=== PATIENT | male | born 1945 | race Caucasian/White ===

== ENCOUNTER 2016-12-19 21:03 | Inpatient (IN) | payer OTHER ==
[~2016-12-19] VITALS: Ht 177.8 cm; Wt 107.5 kg
[2016-12-19 21:51] LABS: CHLORIDE 108 mEq/L (99-109); INTER. NORMALIZED RATIO 1.2; POTASSIUM 3.9 mEq/L (3.7-5.4); PROTHROMBIN TIME 12.1 (9.2-11.2); PTT 25.7 (25-32); SODIUM 143 mEq/L (136-147)
[2016-12-19 21:52] LABS: GLUCOSE 111 mg/dL (70-99)
[2016-12-19 21:54] LABS: ANION GAP 10 MEQ/L (2-14)
[2016-12-19 21:56] LABS: GFR ESTIMATE (CALCULATED) > 59 mL/min/
[2016-12-19 21:57] LABS: UREA NITROGEN (BUN) 30 mg/dL (9-23)
[2016-12-19 22:02] LABS: HEMATOCRIT 18.7 % (38.0-50.0); MCH 24.6 PG (29.0-34.0); MCHC 29.4 G/DL (30.0-36.0); MCV 83.5 FL (86-99); MEAN PLAT.VOLUME 9.3 uM^3 (9.0-12.4); PLATELET COUNT 209 K/uL (156-360); RBC DIS.WIDTH-CV 16.6 % (11.8-14.6); RBC DIS.WIDTH-SD 50.5 % (39-53); RED BLOOD COUNT 2.24 M/uL (4.00-5.50); WHITE BLOOD COUNT 5.8 K/uL (4.1-10.2)
[2016-12-19 22:43] LABS: TOTAL BILIRUBIN 0.6 mg/dL (0.0-1.0)
[2016-12-19 22:44] LABS: ALKALINE PHOSPHATASE 43 IU/L (3-129)
[2016-12-19 22:47] LABS: DIRECT BILIRUBIN 0.2 mg/dL (0.0-0.3)
[2016-12-19 23:03] LABS: TROP-I INTERPRETATION NEGATIVE; TROPONIN-I < 0.01 ng/mL (0.0-0.30)
[2016-12-19] MEDS ORDERED: XARELTO20 MG PO (23:32)
[2016-12-19] MEDS ORDERED: GABAPENTIN300 MG PO (23:33)
[2016-12-19] MEDS ORDERED: PRAVASTATIN SOD10 MG PO (23:33)
[2016-12-19] MEDS ORDERED: BENAZEPRIL HCL20 MG PO (23:33)
[2016-12-19] MEDS ORDERED: METOPROLOL TART50 MG PO (23:33)
[2016-12-19] MEDS ORDERED: HYDROCHLOROTHIA25 MG PO (23:33)
[2016-12-19] MEDS ORDERED: FUROSEMIDE20 MG PO (23:33)
[2016-12-19] MEDS ORDERED: TAMSULOSIN HCL0.4 MG PO (23:34)
[2016-12-19] MEDS ORDERED: KLOR-CON M2020 MEQ PO (23:34)
[2016-12-19] MEDS ORDERED: FISH OIL 1,0001 EAC7 PO (23:34)
[2016-12-19 23:45] VITALS: BP 107/70
[2016-12-19 23:58] VITALS: BP 97/64
[2016-12-20] VITALS (14 sets, daily range): BP systolic 101–131; BP diastolic 59–87
[2016-12-20 11:23] LABS: POINT-OF-CARE USER ID NUTSLF44
[2016-12-20 11:50] LABS: ANION GAP 9 MEQ/L (2-14); CHLORIDE 107 MEQ/L (99-109); GFR ESTIMATE (CALCULATED) > 59 mL/min/; GLUCOSE 101 mg/dL (70-99); POTASSIUM 3.9 MEQ/L (3.7-5.4); SAMPLE HEMOLYSIS CHECK 0; SAMPLE ICTERIC CHECK 0; SAMPLE LIPEMIA CHECK 0; SODIUM 143 MEQ/L (136-147); UREA NITROGEN (BUN) 27 mg/dL (9-23)
[2016-12-20 12:30] LABS: MCH 26.7 PG (29.0-34.0); MCHC 31.6 G/DL (30.0-36.0); MCV 84.5 FL (86-99); MEAN PLAT.VOLUME 10.3 uM^3 (9.0-12.4); PLATELET COUNT 163 K/uL (156-360); RBC DIS.WIDTH-CV 15.7 % (11.8-14.6); RBC DIS.WIDTH-SD 48.6 % (39-53); RED BLOOD COUNT 2.96 M/uL (4.00-5.50); WHITE BLOOD COUNT 4.5 K/uL (4.1-10.2)
[2016-12-20 16:52] LABS: POINT-OF-CARE USER ID NUTSLF44
[2016-12-20 20:04] LABS: HEMATOCRIT 24.1 % (38.0-50.0); MCV 84.9 FL (86-99)
[2016-12-21] VITALS (7 sets, daily range): BP systolic 103–128; BP diastolic 59–95
[2016-12-21 01:24] LABS: HEMATOCRIT 22.6 % (38.0-50.0); MCV 83.7 FL (86-99)
[2016-12-21 07:51] LABS: HEMATOCRIT 25.7 % (38.0-50.0); MCV 84.5 FL (86-99)
[2016-12-21 08:26] LABS: ANION GAP 7 MEQ/L (2-14); CHLORIDE 109 MEQ/L (99-109); GFR ESTIMATE (CALCULATED) > 59 mL/min/; GLUCOSE 91 mg/dL (70-99); POTASSIUM 3.9 MEQ/L (3.7-5.4); SAMPLE HEMOLYSIS CHECK 0; SAMPLE ICTERIC CHECK 0; SAMPLE LIPEMIA CHECK 0; SODIUM 142 MEQ/L (136-147); UREA NITROGEN (BUN) 24 mg/dL (9-23)
[2016-12-21 15:04] LABS: HEMATOCRIT 25.4 % (38.0-50.0); MCV 83.3 FL (86-99)
[2016-12-21 23:37] LABS: HEMATOCRIT 25.2 % (38.0-50.0); MCV 82.9 FL (86-99)
[2016-12-22 03:46] VITALS: BP 130/81
[2016-12-22 05:19] LABS: HEMATOCRIT 24.7 % (38.0-50.0); MCV 84.9 FL (86-99)
[2016-12-22 07:09] LABS: ANION GAP 6 MEQ/L (2-14); CHLORIDE 111 MEQ/L (99-109); GFR ESTIMATE (CALCULATED) > 59 mL/min/; GLUCOSE 109 mg/dL (70-99); POTASSIUM 3.9 MEQ/L (3.7-5.4); SAMPLE HEMOLYSIS CHECK 0; SAMPLE ICTERIC CHECK 0; SAMPLE LIPEMIA CHECK 0; SODIUM 143 MEQ/L (136-147); UREA NITROGEN (BUN) 21 mg/dL (9-23)
[2016-12-22 07:35] VITALS: BP 122/79
[2016-12-22 11:37] VITALS: BP 135/79
[2016-12-22 14:59] LABS: HEMATOCRIT 24.8 % (38.0-50.0); MCV 84.9 FL (86-99)
[2016-12-22 16:52] VITALS: BP 128/98
[2016-12-22 19:25] VITALS: BP 121/71
[2016-12-22 22:47] LABS: HEMATOCRIT 23.6 % (38.0-50.0); MCV 84.3 FL (86-99)
[2016-12-23] VITALS (14 sets, daily range): BP systolic 98–152; BP diastolic 55–83
[2016-12-23 09:48] LABS: POC NON-PRINT COM 1 ND
[2016-12-23 17:59] LABS: HEMATOCRIT 28.7 % (38.0-50.0); MCH 26.4 PG (29.0-34.0); MCV 85.2 FL (86-99); MEAN PLAT.VOLUME 9.5 uM^3 (9.0-12.4); PLATELET COUNT 131 K/uL (156-360); RBC DIS.WIDTH-CV 16.1 % (11.8-14.6); RBC DIS.WIDTH-SD 50.4 % (39-53); RED BLOOD COUNT 3.37 M/uL (4.00-5.50); WHITE BLOOD COUNT 4.5 K/uL (4.1-10.2)
[2016-12-23 18:23] LABS: ANION GAP 9 MEQ/L (2-14); CHLORIDE 109 MEQ/L (99-109); GFR ESTIMATE (CALCULATED) > 59 mL/min/; GLUCOSE 99 mg/dL (70-99); POTASSIUM 3.7 MEQ/L (3.7-5.4); SAMPLE HEMOLYSIS CHECK 0; SAMPLE ICTERIC CHECK 0; SAMPLE LIPEMIA CHECK 0; SODIUM 143 MEQ/L (136-147); UREA NITROGEN (BUN) 18 mg/dL (9-23)
[2016-12-24 04:55] VITALS: BP 115/74
[2016-12-24 05:23] LABS: HEMATOCRIT 25.6 % (38.0-50.0); MCH 27.4 PG (29.0-34.0); MCHC 32.4 G/DL (30.0-36.0); MCV 84.5 FL (86-99); MEAN PLAT.VOLUME 10.3 uM^3 (9.0-12.4); PLATELET COUNT 125 K/uL (156-360); RBC DIS.WIDTH-CV 16.3 % (11.8-14.6); RBC DIS.WIDTH-SD 50.6 % (39-53); RED BLOOD COUNT 3.03 M/uL (4.00-5.50); WHITE BLOOD COUNT 4.1 K/uL (4.1-10.2)
[2016-12-24 05:47] LABS: ANION GAP 7 MEQ/L (2-14); CHLORIDE 109 MEQ/L (99-109); GFR ESTIMATE (CALCULATED) > 59 mL/min/; GLUCOSE 83 mg/dL (70-99); POTASSIUM 3.6 MEQ/L (3.7-5.4); SAMPLE HEMOLYSIS CHECK 0; SAMPLE ICTERIC CHECK 0; SAMPLE LIPEMIA CHECK 0; SODIUM 143 MEQ/L (136-147); UREA NITROGEN (BUN) 18 mg/dL (9-23)
[2016-12-24 07:38] VITALS: BP 123/76
[2016-12-24 12:12] LABS: HEMATOCRIT 27.7 % (38.0-50.0)
[2016-12-24 12:30] VITALS: BP 113/68
[2016-12-24 15:16] VITALS: BP 101/58
[2016-12-24 20:55] VITALS: BP 133/71
[2016-12-25] VITALS (9 sets, daily range): BP systolic 117–140; BP diastolic 65–84
[2016-12-25 06:27] LABS: HEMATOCRIT 25.5 % (38.0-50.0); MCH 26.7 PG (29.0-34.0); MCHC 31.8 G/DL (30.0-36.0); MCV 84.2 FL (86-99); MEAN PLAT.VOLUME 10.3 uM^3 (9.0-12.4); PLATELET COUNT 131 K/uL (156-360); RBC DIS.WIDTH-CV 16.2 % (11.8-14.6); RBC DIS.WIDTH-SD 48.7 % (39-53); RED BLOOD COUNT 3.03 M/uL (4.00-5.50); WHITE BLOOD COUNT 4.3 K/uL (4.1-10.2)
[2016-12-26 04:02] VITALS: BP 124/66
[2016-12-26 05:11] LABS: EOSINOPHIL (%) 2.9 % (0-5); EOSINOPHIL COUNT 0.1 K/uL (0-0.3); HEMATOCRIT 26.8 % (38.0-50.0); IMMATURE GRANULOCYTE (%) 0.3 % (0.0-0.7); INSTRUMENT ABS NEUTROPHIL CT 2.5 K/uL; LYMPHOCYTE COUNT 0.7 K/uL (1.0-2.8); MCH 25.9 PG (29.0-34.0); MCHC 30.6 G/DL (30.0-36.0); MCV 84.5 FL (86-99); MEAN PLAT.VOLUME 9.4 uM^3 (9.0-12.4); MONOCYTE (%) 11.4 % (3-12); MONOCYTE COUNT 0.4 K/uL (0-0.8); NEUTROPHIL (%) 66.3 % (45-76); NEUTROPHIL COUNT 2.5 K/uL (1.8-6.4); PLATELET COUNT 122 K/uL (156-360); RBC DIS.WIDTH-CV 15.9 % (11.8-14.6); RBC DIS.WIDTH-SD 50.3 % (39-53); RED BLOOD COUNT 3.17 M/uL (4.00-5.50); WHITE BLOOD COUNT 3.8 K/uL (4.1-10.2)
[2016-12-26 06:54] LABS: ANION GAP 7 MEQ/L (2-14); CHLORIDE 106 MEQ/L (99-109); GFR ESTIMATE (CALCULATED) > 59 mL/min/; GLUCOSE 82 mg/dL (70-99); POTASSIUM 3.7 MEQ/L (3.7-5.4); SAMPLE HEMOLYSIS CHECK 0; SAMPLE ICTERIC CHECK 0; SAMPLE LIPEMIA CHECK 0; SODIUM 140 MEQ/L (136-147); UREA NITROGEN (BUN) 17 mg/dL (9-23)
[2016-12-26 07:30] VITALS: BP 133/71
[2016-12-26] MEDS ORDERED: LOPRESSOR25 MG PO (07:53)
[2016-12-26] MEDS ORDERED: PROTONIX40 MG PO (07:53)
== END 2016-12-26 11:10 | disposition home or self-care (01) | DRG 378 ==
LOC: EME 21:03 → 4EAST 12-20 02:20 → 5SOUTH 12-20 02:20 → EDOF 12-20 02:20 → 4EAST 12-20 03:43 → 5SOUTH 12-25 19:13 → 4EAST 12-25 19:14 → 5SOUTH 12-25 19:45
PROVIDERS: Emergency Medicine; Hospitalist; Internal Medicine; Internal Medicine Gastroenterology
DX: K92.1 Melena (principal); D62 Acute posthemorrhagic anemia; G47.33 Obstructive sleep apnea (adult) (pediatric); I10 Essential (primary) hypertension; I48.91 Unspecified atrial fibrillation; E78.5 Hyperlipidemia, unspecified; E11.9 Type 2 diabetes mellitus without complications; I25.10 Atherosclerotic heart disease of native coronary artery without angina pectoris; K57.30 Diverticulosis of large intestine without perforation or abscess without bleeding; D12.4 Benign neoplasm of descending colon; K64.8 Other hemorrhoids; K63.9 Disease of intestine, unspecified; E66.9 Obesity, unspecified; Z79.01 Long term (current) use of anticoagulants
CPT/HCPCS: 71010; 74177; 80048; 80069; 80076; 82272; 82948; 83605; 83735; 84484; 85014; 85018; 85025; 85027; 85610; 85730; 86900; 86901; 86920; 88305; 99281; 99285; C9113; J1940; J7030; P9016

== ENCOUNTER 2017-01-08 12:31 | Inpatient (IN) | payer OTHER ==
[~2017-01-08] VITALS: Ht 177.8 cm; Wt 106.0 kg
[2017-01-08] VITALS (8 sets, daily range): BP systolic 124–145; BP diastolic 67–90
[~2017-01-08 12:31] MED LIST: BENAZEPRIL HCL20 MG PO; FISH OIL 1,0001 EAC7 PO; FUROSEMIDE20 MG PO; GABAPENTIN300 MG PO; HYDROCHLOROTHIA25 MG PO; KLOR-CON M2020 MEQ PO; LOPRESSOR25 MG PO; METOPROLOL TART50 MG PO; PRAVASTATIN SOD10 MG PO; PROTONIX40 MG PO; TAMSULOSIN HCL0.4 MG PO; XARELTO20 MG PO
[2017-01-08 13:33] LABS: CHLORIDE 112 mEq/L (99-109); POTASSIUM 4.5 mEq/L (3.7-5.4); SODIUM 142 mEq/L (136-147)
[2017-01-08 13:35] LABS: GLUCOSE 111 mg/dL (70-99)
[2017-01-08 13:36] LABS: ANION GAP 6 MEQ/L (2-14)
[2017-01-08 13:39] LABS: GFR ESTIMATE (CALCULATED) > 59 mL/min/; UREA NITROGEN (BUN) 27 mg/dL (9-23)
[2017-01-08 13:47] LABS: HEMATOCRIT 17.2 % (38.0-50.0); MCH 22.9 PG (29.0-34.0); MCHC 29.1 G/DL (30.0-36.0); NRBC (%) 0.4 /100 WBC (0-0); RBC DIS.WIDTH-CV 19.4 % (11.8-14.6); RBC DIS.WIDTH-SD 56.1 % (39-53); WHITE BLOOD COUNT 5.4 K/uL (4.1-10.2)
[2017-01-08 13:48] LABS: MEAN PLAT.VOLUME 9.8 uM^3 (9.0-12.4); RED BLOOD COUNT 2.18 M/uL (4.00-5.50)
[2017-01-08 13:49] LABS: MCV 78.9 FL (86-99); PLATELET COUNT 260 K/uL (156-360)
[2017-01-08] MEDS ORDERED: PROTONIX40 MG PO (14:09)
[2017-01-08 17:26] LABS: HEMATOCRIT 18.9 % (38.0-50.0); MCV 81.1 FL (86-99)
[2017-01-08 23:35] LABS: HEMATOCRIT 20.3 % (38.0-50.0); MCV 79.6 FL (86-99)
[2017-01-09] VITALS (18 sets, daily range): BP systolic 100–141; BP diastolic 40–102
[2017-01-09 05:30] LABS: HEMATOCRIT 22.6 % (38.0-50.0)
[2017-01-09 05:58] LABS: ALKALINE PHOSPHATASE 39 IU/L (3-129); ANION GAP 5 MEQ/L (2-14); CHLORIDE 111 MEQ/L (99-109); GFR ESTIMATE (CALCULATED) > 59 mL/min/; GLUCOSE 101 mg/dL (70-99); POTASSIUM 4.2 MEQ/L (3.7-5.4); SAMPLE HEMOLYSIS CHECK 0; SAMPLE ICTERIC CHECK 0; SAMPLE LIPEMIA CHECK 0; SODIUM 142 MEQ/L (136-147); TOTAL BILIRUBIN 1.5 MG/DL (0.0-1.0); UREA NITROGEN (BUN) 25 mg/dL (9-23)
[2017-01-09 06:00] LABS: INTER. NORMALIZED RATIO 1.2; PROTHROMBIN TIME 12.6 (9.2-11.2)
[2017-01-09 12:56] LABS: METH RESISTANT S AUREUS PCR NEGATIVE (NEGATIVE); PROBE CHECK PASS; SPECIMEN PROCESSING CONTROL PASS
[2017-01-09 14:03] LABS: MCV 83.1 FL (86-99)
[2017-01-09 18:37] LABS: HEMATOCRIT 28.6 % (38.0-50.0); MCV 81.7 FL (86-99)
[2017-01-10] VITALS (8 sets, daily range): BP systolic 104–145; BP diastolic 53–93
[2017-01-10 01:05] LABS: HEMATOCRIT 28.5 % (38.0-50.0); MCV 81.2 FL (86-99)
[2017-01-10 06:20] LABS: HEMATOCRIT 27.6 % (38.0-50.0); MCV 82.4 FL (86-99)
== END 2017-01-10 09:52 | disposition short-term general hospital (02) | DRG 812 ==
LOC: EME 12:31 → 5SOUTH 15:31 → EDOF 15:31 → 4WEST 15:31 → 5SOUTH 16:42 → 4WEST 01-09 11:26
PROVIDERS: Hospitalist; Internal Medicine; Internal Medicine Gastroenterology
PROC: 30233N1 Transfusion of Nonautologous Red Blood Cells into Peripheral Vein, Percutaneous Approach (ICD-10-PCS; principal; 2017-01-08)
DX: D62 Acute posthemorrhagic anemia (principal); I48.91 Unspecified atrial fibrillation; I10 Essential (primary) hypertension; R00.1 Bradycardia, unspecified; E11.9 Type 2 diabetes mellitus without complications; Z79.01 Long term (current) use of anticoagulants; Z79.4 Long term (current) use of insulin; E78.5 Hyperlipidemia, unspecified; I25.10 Atherosclerotic heart disease of native coronary artery without angina pectoris; K92.1 Melena; T44.7X5A Adverse effect of beta-adrenoreceptor antagonists, initial encounter; K57.30 Diverticulosis of large intestine without perforation or abscess without bleeding; K63.5 Polyp of colon; D12.0 Benign neoplasm of cecum; K64.8 Other hemorrhoids
CPT/HCPCS: 78278; 80048; 80053; 85014; 85018; 85027; 85610; 85730; 86900; 86901; 86920; 87641; 99281; 99285; A9512; A9560; C9113; J7030; P9016

== ENCOUNTER → 2018-02-01 | Outpatient (CLI) | payer OTHER | END | disposition home or self-care (01) | LOC: AMB 01-11 13:30 | PROC: 0DBP8ZX Excision of Rectum, Via Natural or Artificial Opening Endoscopic, Diagnostic (ICD-10-PCS; principal; 2018-02-01) | DX: D50.9 Iron deficiency anemia, unspecified (principal); K62.1 Rectal polyp; K64.8 Other hemorrhoids; K57.30 Diverticulosis of large intestine without perforation or abscess without bleeding; Z86.010 Personal history of colon polyps; I10 Essential (primary) hypertension; E78.5 Hyperlipidemia, unspecified; Z79.01 Long term (current) use of anticoagulants; Z88.8 Allergy status to other drugs, medicaments and biological substances | CPT/HCPCS: 88305; 93005 ==